=== PATIENT | female | born 1995 | race African-American/Black ===

== ENCOUNTER 2017-01-12 16:22 | Emergency (ER) | payer OTHER ==
[~2017-01-12] VITALS: Ht 160 cm; Wt 64.4 kg
[2017-01-12 16:53] VITALS: BP 125/72
--- NOTE | 2017-01-12 17:32 | PHYS DOC ---
Past Medical History Past Medical History: No Pertinent History Past Surgical History: No Surgical History Alcohol Use: None Drug Use: None Adult General Chief Complaint Chief Complaint: WEIGHT LOSS HPI HPI Patient is a 21 year old female presents emergency room today with complaint of a one-week history of decreased appetite and weight loss. Patient was seen at [facility] 5 days ago and diagnosed with a kidney infection. She is currently taking Bactrim DS for this. She denies any fevers or chills. She denies any flank pain at this time. Patient has not followed up with a primary care doctor since that period of time. Patient denies any history of eating disorders. She denies any history of soft tissue connective diseases or immunodeficiency disorders. She denies any known history of cancer. Review of Systems Review of Systems Constitutional: Denies fever or chills [] Eyes: Denies change in visual acuity, redness, or eye pain [] HENT: Denies nasal congestion or sore throat [] Respiratory: Denies cough or shortness of breath [] Cardiovascular: No additional information not addressed in HPI [] GI: Denies abdominal pain, nausea, vomiting, bloody stools or diarrhea [] : Denies dysuria or hematuria [] Musculoskeletal: Denies back pain or joint pain [] Integument: Denies rash or skin lesions [] Neurologic: Denies headache, focal weakness or sensory changes [] Endocrine: Denies polyuria or polydipsia [] Allergies Allergies Allergies Coded Allergies Type Severity Reaction Last Updated Verified Penicillins Allergy Intermediate Hives 01/12/17 Yes Physical Exam Physical Exam Constitutional: Well developed, well nourished, no acute distress, non-toxic appearance. HENT: Normocephalic, atraumatic, bilateral external ears normal, oropharynx moist, no oral exudates, nose normal. Eyes: PERRLA, EOMI, conjunctiva normal, no discharge. [] Neck: Normal range of motion, no tenderness, supple, no stridor. [] Cardiovascular:Heart rate regular rhythm, no murmur Lungs & Thorax: Bilateral breath sounds clear to auscultation Abdomen: Bowel sounds normal, soft, no tenderness, no masses, no pulsatile masses. Skin: Warm, dry, no erythema, no rash. [] Back: No tenderness, no CVA tenderness. [] Extremities: No tenderness, no cyanosis, no clubbing, ROM intact, no edema. [] Neurologic: Alert and oriented X 3, normal motor function, normal sensory function, no focal deficits noted. [] Psychologic: Affect normal, judgement normal, mood normal. [] Current Patient Data Vital Signs Vital Signs Date Time Temp Pulse Resp B/P Pulse Ox O2 Delivery O2 Flow Rate FiO2 01/12/17 16:53 98.4 73 18 98 Room Air 98.4 EKG EKG [] Radiology/Procedures Radiology/Procedures [] Course & Med Decision Making Course & Med Decision Making Patient I had a lengthy discussion about her recovery from her kidney infection. She now states that she has a better understanding of infection process such as lack of appetite/by mouth intake. Dragon Disclaimer Dragon Disclaimer This electronic medical record was generated, in whole or in part, using a voice recognition dictation system. Departure Departure Impression: Primary Impression: Weight loss Disposition: HOME, SELF-CARE Condition: GOOD Referrals: NO PCP (PCP) Patient Instructions: Pyelonephritis, Adult, [id number] Additional Instructions: 1. You're recovering from a kidney infection. It is normal to have a decreased appetite and often weight loss during and immediately after significant illness. 2. Continue taking the antibiotic as prescribed. 3. Use the pamphlet provided for assistance in finding a primary care doctor to address your medical concerns. ERIKA SOLIMAN Jan 12, 2017 17:32
== END 2017-01-12 17:41 | disposition home or self-care (01) ==
LOC: ER 16:22
DX: R63.4 Abnormal weight loss (principal); R63.0 Anorexia; Z88.0 Allergy status to penicillin
CPT/HCPCS: 99281